=== PATIENT | female | born 1955 | race Caucasian/White ===

== ENCOUNTER 2023-10-24 06:23 | Day surgery (SDC) | payer BC ==
[2023-10-20 11:43] VITALS: BMI 24.3
[~2023-10-24 06:23] MED LIST: EPINEPHrine 0.3 MG in Ophthalmic Irrigation Solution 500 ML IRR SCH
[2023-10-24] MEDS ORDERED: Cyclopentolate W/ Phenylephrin 40 DROP/2 ML BOT ONE (07:00)
[2023-10-24] MEDS ORDERED: Midazolam HCl 2 mg/2 ml Vial ONE (08:04)
[2023-10-24] MEDS ORDERED: Lidocaine 4% PF 5 ML AMP ONE (08:12)
[2023-10-24] MEDS ORDERED: Maxitrol 0.1% Opth Oint 3.5 GM TUBE ONE (08:12)
[2023-10-24] MEDS ORDERED: Triamcinolone 40 MG/ML VIAL ONE (08:12)
[2023-10-24] MEDS ORDERED: Bupivacaine 0.75% 10 ML VIAL ONE (08:12)
[2023-10-24] MEDS ORDERED: PROPOFOL 200 MG/20 ML VIAL ONE (08:12)
== END 2023-10-24 09:14 | disposition home or self-care (01) ==
LOC: SDC 06:23
PROVIDERS: ATTEND Ophthalmology Retina Specialist
PROC: 08T43ZZ Resection of Right Vitreous, Percutaneous Approach (ICD-10-PCS; principal; 2023-10-24)
DX: H43.391 Other vitreous opacities, right eye (principal); Z88.0 Allergy status to penicillin; Z88.2 Allergy status to sulfonamides; Z88.6 Allergy status to analgesic agent
CPT/HCPCS: J0171; J2250; J2704; J3301; J3490

== ENCOUNTER 2025-04-10 14:01 | Outpatient (CLI) | payer MEDICARE, BC | END 2025-04-10 14:02 | disposition home or self-care (01) | LOC: EEG 14:01 | PROVIDERS: ATTEND Psychiatry & Neurology Neurology | DX: G93.40 Encephalopathy, unspecified (principal) | CPT/HCPCS: 95816 ==